=== PATIENT | male | born 1960 ===

== ENCOUNTER → 2018-08-22 | Outpatient (CLI) | payer OTHER ==
[~2018-08-22] MED LIST: MV-M1TAB29 PO; SILD100T PO
--- NOTE | 2018-08-22 14:11 | PAIN ---
DATE OF SERVICE: 08/22/2018 INITIAL CONSULTATION FOR PAIN CLINIC CHIEF COMPLAINT: Neck and bilateral upper extremity pain. HISTORY OF PRESENT ILLNESS: This is a 58-year-old male who presents with history of pain in the base of the neck and bilateral upper extremities and shoulders for many years, worse over the past 6-7 months. The patient reports it is sharp and aching, radiating from the base of the neck into the shoulders bilaterally, somewhat worse on the left than right, but present bilaterally. The patient reports it is worse with activity, rising above his head with his arms, repetitive motions or carrying items with his upper extremities, also driving. The patient is a director nursery school and reports that this is becoming more difficult with using the steering wheel. It is a rather heavy and large in the school bus itself, but the patient is still performing this without any significant deficits. The patient reports no loss of motor function. No weakness in the upper extremities, but significant discomfort and pain which is awakening him from sleep at times, not every night but can wake him up as many as 3 times a night. The patient reports it does not affect his ability to walk, but with using upper extremities and driving, it is becoming more noticeable and more uncomfortable. The patient reports he has had physical therapy in the past as well as chiropractic treatment which has helped to a moderate extent, but only slightly. The patient is doing some stretching and strengthening exercises with upper extremities, neck and shoulders currently. The patient is reporting uses heating pads as well as capsaicin cream, which helps somewhat per his report. Does this daily, but this does not decrease the pain significantly. The patient reports he is sleeping with a good support of pillow, which does not seem to help the pain at all. The patient reports no loss of motor function, but significant pain described as sharp and aching, shooting more to the left posterior tricep and deltoid as well as on the right in the same distribution, some on the right anterior bicep. Because he is right handed, he uses his right hand more often. The patient reports some tingling and numbness occasionally in the hands and fingers, but not present all the time. The patient did have an MRI scan of the cervical spine showing the mild disk desiccation throughout with mild broad-based posterior disk bulges resulting in mild central canal stenosis at C6-C7, C5-C6, C4-C5 and C3-C4 bilateral. The patient rates his disability rating from 0-10, 10 being the worst, is a 7 with family and home responsibilities, recreation and occupation; 5 with social activities, sexual behavior; 4 with self-care and 6 with life support activities. PAST MEDICAL HISTORY: Significant for some previous cigarette smoking, quit in 1984. Also, history of arthritis, irritable bowel syndrome. PREVIOUS SURGERY: Includes bunionectomy bilaterally removed, left wrist cystectomy in 1976, previous vasectomy and prostate biopsy in 2017. CURRENT MEDICATIONS: Include Viagra and ____ vitamin C tablets. FAMILY HISTORY: Significant for no major medical problems or conditions he is aware of. SOCIAL HISTORY: The patient drinks about 1 glass of wine a night. Quit smoking many years ago. He does not use any illegal, illicit or recreational drugs. He is and lives with his spouse, lives locally in [place], [place]. Again, he is a director nursery school. REVIEW OF SYSTEMS: The patient's review of systems is positive for those items mentioned in the history of present illness. All systems reviewed and otherwise negative. It is complete, full and well documented on the patient's chart. PHYSICAL EXAMINATION: VITAL SIGNS: The patient's blood pressure is 150/93, pulse 62, respirations 16, temperature 97.9 degrees Fahrenheit, height is 5 feet 9 inches, weight is 153 pounds. GENERAL: The patient is awake, alert, oriented, appropriate, has a very pleasant demeanor. HEENT: Shows normocephalic, atraumatic. Extraocular movements are intact and symmetrical. Oral cavity shows mucous membranes moist and pink. Dentition is intact. NECK: Shows supple without palpable lymphadenopathy noted. Swallow reflex is symmetrical. CHEST: Shows normal on inspection. Breath sounds clear to auscultation bilaterally. HEART: Shows S1, S2 clear. No murmurs auscultated. ABDOMEN: Soft, nontender, nondistended. No palpable organomegaly is noted. No rebound or guarding demonstrated. MUSCULOSKELETAL: The patient's back shows spine grossly in the midline, normal-appearing cervical lordotic curvature, thoracic kyphotic curvature and lumbar lordotic curvature. The patient's cervical paraspinous muscle shows symmetrical on inspection and palpation shows some mild tenderness in the inferior and superior aspect of the superior medial trapezius, inferior cervical paraspinous musculature. The patient has a good rotational motion both laterally, greater than 45 degrees closer to 90 degrees right and left with some moderate tenderness, more to the right than the left. Also with extension, some pain in the base of the neck, but not with radiation. Forward flexion is decreased due to pain. Has complete chin to chest without difficulty or pain reported. The patient's upper extremities show deep tendon reflexes at 2+ in the biceps, triceps tendons. Motor exam is strong with commercial credit officer strength rated at 5/5 as is bicep and tricep flexion and symmetrical and strong. Peripheral pulses are 2+, radial distribution. No peripheral edema is noted. Shoulder shrug is strong and intact without loss of strength on resistance as is abduction of shoulder to 90 degrees without loss of strength on resistance. Some minor pain reported more on the left with resistance, but without radiation. IMPRESSION: 1. This is a 58-year-old male with a long history of neck, bilateral shoulder pain, worse over the past 6-7 months with radicular component bilaterally, again worse on the left than the right. 2. MRI scan of the cervical spine as noted. 3. Arthritis. 4. Irritable bowel syndrome. PLAN: Options were discussed with the patient including conservative medical management, physical therapy, interventional techniques and he would like to pursue interventional techniques. We discussed a cervical epidural steroid injection using description as well as anatomical models to describe the procedure. The patient will wait for preauthorization with insurance provider. In the meantime, we will try Medrol Dosepak. The patient was given instruction as well as side effects to be aware of with the medication and will follow up in approximately 2 weeks for a cervical epidural steroid injection at that time. The patient with cervical radiculopathy bilaterally, again worse on the left than the right, in a C5-C6 dermatomal distribution primarily status post exercises, previous physical therapy and chiropractic treatments without significant improvement. The patient is using capsaicin ointment as well as heating pads, [id number] ibuprofen and Tylenol as well without significant improvement long-term. LING CHEN MD DR: GIAN/michael JOB#: [id number] / [id number]
== END | disposition home or self-care (01) ==
LOC: PNCL 09:43
PROVIDERS: ATTEND Anesthesiology
DX: M79.602 Pain in left arm (principal); M79.601 Pain in right arm; M54.12 Radiculopathy, cervical region; M19.90 Unspecified osteoarthritis, unspecified site; K58.9 Irritable bowel syndrome, unspecified; Z87.891 Personal history of nicotine dependence
CPT/HCPCS: 99214

== ENCOUNTER → 2018-09-29 | Outpatient (CLI) | payer OTHER ==
[~2018-09-29] MED LIST changes: +IOHEXOL 180 MG/ML 10 ML VIAL. ONE; +methylPREDNISolone ACETATE 40 MG/ML VIAL. ONE; +methylPREDNISolone ACETATE 80 MG/ML VIAL. ONE
--- NOTE | 2018-09-29 23:57 | PAIN ---
DATE OF SERVICE: 09/29/2018 DIAGNOSIS: Cervical radiculopathy with cervical degenerative disk disease. HISTORY OF PRESENT ILLNESS: The patient is a 58-year-old male who returns for followup status post initial evaluation and preauthorization for cervical epidural steroid injection. The patient has obtained this now and would like to proceed. Still some pain in the base of the neck, bilateral shoulders and upper extremities as previously. The patient reports it is a 6 on a scale 10 at all times, average, worst and least and is a 6 today. The patient reports it is radiating, more constant in the upper extremities, mostly in the posterior deltoid, but also in the biceps bilaterally and the forearms with some numbness and tingling as well in the hands, more on the right than the left. The patient reports the pain is significant in both sides. The patient reports it does not awaken him from sleep at night. He sleeps fairly well. Does not have any new motor or sensory deficits, no new changes. PHYSICAL EXAMINATION: VITAL SIGNS: The patient's blood pressure is 146/86, pulse 67, respirations 16, temperature 98.0 degrees Fahrenheit, weight is 152 pounds. GENERAL: The patient is awake, alert, oriented, appropriate, very pleasant demeanor. HEENT: Shows normocephalic, atraumatic. Extraocular movements are intact and symmetrical. Oral cavity: Mucous membranes moist and pink. Dentition is intact. NECK: Shows anterior throat supple without palpable lymphadenopathy noted. Swallow reflex is symmetrical. CHEST: Shows normal on inspection. Breath sounds are clear to auscultation bilaterally. HEART: Shows S1, S2 clear. No murmurs auscultated. ABDOMEN: Soft, nontender, nondistended. No palpable organomegaly is noted. No rebound or guarding demonstrated. BACK: Shows spine grossly in the midline. Normal appearing thoracic kyphosis and lumbar lordotic curvature. Cervical paraspinous muscle shows symmetrical on inspection. With palpation shows some moderate tenderness diffusely without radiation, but good rotational motion of cervical spine, both laterally as well as extension and flexion without significant difficulty. EXTREMITIES: The patient's upper extremities show deep tendon reflexes at 2+ in the biceps and triceps tendons. Motor exam is strong with 5/5 ceramics artist strength, bicep and tricep flexion. Peripheral pulses are 2+ radial distribution. No peripheral edema is noted bilaterally. Options were discussed with the patient. The patient's old chart was reviewed as is his current medication regimen updated. Current review of systems is updated today as well and we will proceed with a cervical epidural steroid injection today, first in this series. Risks were discussed including but not limited to bleeding, infection, possibility of epidural hematoma and subsequent neurological compromise, dural puncture, headaches, spinal cord and/or nerve damage, side effects of steroid medication and poor results regarding pain control. The patient understands and wished to proceed. The patient will return to the clinic in approximately 2 weeks for followup, was counseled on return appointment, activity level, and side effects to be aware of. DIAGNOSIS: Cervical radiculopathy with cervical degenerative disk disease. PROCEDURE: Cervical epidural steroid injection, translaminar approach C6-C7 level using C-arm fluoroscopic guidance under sterile prep and drape using local anesthetic. MEDICATION INJECTED: A total of 120 mg of Depo-Medrol plus 5 mL of preservative-free normal saline and 2 mL of Isovue for contrast. CONDITION ON DISCHARGE: Stable. The patient tolerated the procedure well, had no complications. LING CHEN MD DR: GIAN/michael JOB#: [id number] / [id number]
== END | disposition home or self-care (01) ==
LOC: PNCL 10:33
PROVIDERS: ATTEND Anesthesiology
DX: M50.123 Cervical disc disorder at C6-C7 level with radiculopathy (principal)
CPT/HCPCS: 62321; J1030; J1040; Q9965